=== PATIENT | female | born 1975 | race Caucasian/White ===

== ENCOUNTER → 2018-04-20 13:52 | Outpatient (CLI) | payer MEDICAID, SELFPAY ==
[2017-03-24 10:26] VITALS: BMI 26.2
--- NOTE | 2018-04-20 | EMB_PTH ---
PATIENT: CHRISTIANA BROWN LOC: [facility] U#:[id number] AGE/SX: 49/F ROOM: RE04/20/[address]: Dr. Cordelia Olivas MD : 1975 BED: DIS: SPEC #: [id number] RECD: 04/20/18 14:07 STATUS: NATALIE LIZZY #: [id number] DEBRA: 04/20/18 00:[address]: Cordelia Rincon DEPT: SURGICAL PATHOLOGY RECD BY: Jose Moon Tissues: Endometrium, NOS Procedures: Surgery Specimen Level IV HEADER OPERATION: Endometrial biopsy PRE-OP DIAGNOSIS: Frequent and irregular menses, pap 04/20/18, 04/11/18 TISSUE SUBMITTED: Endometrial biopsy MICROSCOPIC DIAGNOSIS Endometrial biopsy: Proliferative endometrium. SJ:rl 04/21/18 MICROSCOPIC DESCRIPTION Slides are reviewed. GROSS DESCRIPTION Received is one container labeled with the patient's name and not further designated. The specimen consists of multiple irregular fragments of pink-red soft tissue that in aggregate measure 3 x 2.5 x 0.3 cm. The specimen is totally submitted in one cassette. / OSCAR:rl 04/20/18 TC:4 CPT: 39148
[2018-04-20 14:19] LABS: Hematocrit 35.3 % (37-47); Hemoglobin 11.1 g/dl (12.0-15.0); Mean Corp Hgb Conc 31.4 g/gl (32-36); Mean Corpuscular Hgb 28.2 pg (27.0-32.0); Mean Corpuscular Volume 89.6 fL (81-99); Mean Platelet Vol. 9.9 fl (6.2-12.0); Platelet Count 259 K/mm3 (150-450); RBC Distribution Width CV 13.8 % (11.6-14.6); RBC Distribution Width SD 45.4 fl (35.1-43.9); Red Blood Count 3.94 M/mm3 (4.2-5.4)
[2018-04-20 14:20] LABS: Scan Indicated on CBC? Y/N NO
[2018-04-20 14:29] LABS: Free T3 2.6 pg/mL (2.18-3.98); Iron 39 ug/dL (50-170); T4 Free Direct 0.86 ng/dL (0.76-1.46); T4 Total, Thyroxin 7.2 ug/dL (4.8-13.9); Thyroid Stim Hormone (TSH) 1.24 uIU/mL (0.358-3.74)
[2018-04-26 11:45] LABS: HPV APTIMA, High Risk Negative (Negative)
== END ==
PROVIDERS: Referring Provider Obstetrics & Gynecology; Visit Provider Obstetrics & Gynecology
DX: N92.0 Excessive and frequent menstruation with regular cycle (principal)
CPT/HCPCS: 83540; 84436; 84439; 84443; 84481; 85027; 87624; 88175; 88305; G0145

== ENCOUNTER → 2018-07-24 09:12 | Outpatient (CLI) | payer MEDICAID, SELFPAY ==
[2018-06-30 10:31] LABS: Hematocrit 39.1 % (37-47); Hemoglobin 12.8 g/dl (12.0-15.0); Mean Corp Hgb Conc 32.7 g/gl (32-36); Mean Corpuscular Hgb 29.8 pg (27.0-32.0); Mean Corpuscular Volume 91.1 fL (81-99); Mean Platelet Vol. 8.9 fl (6.2-12.0); Platelet Count 217 K/mm3 (150-450); RBC Distribution Width CV 15.5 % (11.6-14.6); RBC Distribution Width SD 51.6 fl (35.1-43.9); Red Blood Count 4.29 M/mm3 (4.2-5.4)
[2018-06-30 10:36] LABS: Scan Indicated on CBC? Y/N NO
[2018-06-30 10:47] LABS: Prothrombin Time (Protime)PT. 13.2 SECONDS (11.7-14.9)
[2018-06-30 10:48] LABS: Partial Thromboplast Time 27.8 Seconds (24.1-36.2)
== END ==
PROVIDERS: Family Provider Nurse Practitioner Family; PCP Nurse Practitioner Family; Referring Provider Obstetrics & Gynecology; Visit Provider Obstetrics & Gynecology
DX: Z01.818 Encounter for other preprocedural examination (principal)
CPT/HCPCS: 36415; 85027; 85610; 85730; 86850; 86900

== ENCOUNTER → 2018-12-13 09:49 | Outpatient (CLI) | payer MEDICAID, SELFPAY ==
[2018-12-13 12:02] LABS: HIV - WCH Non-Reactive (Nonreactive); Hepatitis C Antibody Non-Reactive (Nonreactive)
[2018-12-15 02:41] LABS: Rapid Plasmin Reagin (RPR) NONREACTIVE (NONREACTIVE)
== END ==
PROVIDERS: Visit Provider Obstetrics & Gynecology
DX: Z11.3 Encounter for screening for infections with a predominantly sexual mode of transmission (principal)
CPT/HCPCS: 36415; 86592; 86703; 86803

== ENCOUNTER 2019-03-29 08:54 | Day surgery (SDC) | payer MEDICAID, SELFPAY ==
[2019-03-23 11:37] LABS: Hemoglobin 11.8 g/dL (12.0-15.0); Mean Corp Hgb Conc 31.9 g/dL (32-36); Mean Corpuscular Hgb 29.2 pg (27.0-32.0); Mean Corpuscular Volume 91.6 fL (81-99); Mean Platelet Vol. 10.1 fl (6.2-12.0); Platelet Count 240 K/mm3 (150-450); RBC Distribution Width CV 12.8 % (11.6-14.6); RBC Distribution Width SD 42.1 fl (35.1-43.9); Red Blood Count 4.04 M/mm3 (4.2-5.4)
[2019-03-23 11:43] LABS: International Normalized Ratio 1.1; Partial Thromboplast Time 27.4 Seconds (24.1-36.2); Prothrombin Time (Protime)PT. 13.8 SECONDS (11.7-14.9)
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
[2019-03-29] VITALS (8 sets, daily range): BP systolic 102–113; BP diastolic 7–75; PULSE 54–74; RESP 16–18; TEMP 36.6–37; O2SAT 93–100; BMI 24.1
[2019-03-29 09:29] LABS: Internal QC Validated? YES +Cl - CLEAR BKGD; Pregnancy, Urine Negative Negative
[2019-03-29] MEDS: Lactated Ringers 1,000 ML 100 ML IV (09:31)
--- NOTE | 2019-03-29 10:50 | FALS_PTH ---
PATIENT: CHRISTIANA BROWN LOC: [facility] – [place], [place] U#:[id number] AGE/SX: 44/F ROOM: RE03/29/[address]: Dr. Cordelia Olivas MD : 1975 BED: DIS: 03/29/2019 SPEC #: [id number] RECD: 03/29/19 14:59 STATUS: NATALIE REBismark #: [id number] DEBRA: 03/29/19 10:[address]: Cordelia Rincon DEPT: SURGICAL PATHOLOGY RECD BY: Blanco Vazquez ENTERED: 03/30/19 09:40 SP TYPE: FALL TUBES OTHR DR: Chelsea Sparks, COAGULATING OPERATOR-C Tissues: A - Fallopian tube B - Endometrial cavity Procedures: Surgery Specimen Level II Surgery Specimen Level IV HEADER OPERATION: Hysteroscopy, D & C Symphion, Tracy ablation PRE-OP DIAGNOSIS: Desired sterilization, excessive and frequent menstruation with regular cycle, leiomyoma of uterus and unspecified TISSUE SUBMITTED: A. Bilateral fallopian tubes, B. Endometrial curettings MICROSCOPIC DIAGNOSIS A. Bilateral fallopian tubes, salpingectomy: Bilateral fallopian tubes including fimbrial ends, no pathologic diagnosis. Paratubal cyst. B. Endometrial curettings: Secretory endometrium. OSCAR:rl 04/02/19 MICROSCOPIC DESCRIPTION Slides are reviewed. GROSS DESCRIPTION A - Received is one container labeled with the patient's name and designated bilateral fallopian tubes. The specimen consists of bilateral fallopian tubes including fimbrial ends measuring 5 cm in length and 0.5 cm in diameter and 3.5 cm in length and 0.5 cm in diameter. Two small paratubal cysts are noted in one of the fallopian tubes filled with clear fluid. Paratubal cyst measures 0.3 cm in greatest dimension. The fallopian tubes are not identified as right or left. Sections reveal unremarkable cut surfaces. Route Salesperson sections are submitted in two cassettes as follows: 1 - one fallopian tube, 2 - second fallopian with paratubal cyst. B - Received in fixative is one container labeled with the patient's name and designated endometrial curettings. The specimen consists of multiple fragments of hemorrhagic soft tissue that in aggregate measure 7.5 x 3 x 0.3 cm. The entire specimen is submitted in three cassettes. / OSCAR:rl 03/30/19 TC:4 CPT: 80373, 57269 x2
[2019-03-29] MEDS: Bupivacaine Mpf 0.5% 30 ML VIAL (12:12)
--- NOTE | 2019-03-29 15:30 | DCINST_ITS ---
- Discharge Diagnoses Current Active Problems: Abnormal uterine bleeding You will use the following diet at home:: No restrictions Your food should be the consistency of: Regular Discharge Activity: Return to Normal Activity, May Shower, - - No tub bath x 2 weeks May resume sexual activity in: - - 4 weeks Call your doctor if you observe: Fever of 101 or Higher, Inability to urinate, Inability to have a bowel movement, Using more than one pad per hour, Shortness of breath, Chest pain, Calf discomfort, Uncontrolled pain Remove Dressing in (days):: 1 - Remove steristrips on Tuesday Cleanse incision/area with: Soap & Water Allergies/Adverse Reactions: Allergies latex Allergy (Mild, Verified 03/29/19 09:16) hives Medications to take at Discharge sumatriptan succinate 50 mg tablet 50 mg PO ONCE PRN 03/24/17 topiramate 50 mg tablet 50 mg PO BID 03/24/17 Meclizine HCl 25 mg PO PRN PRN 06/27/18 Acyclovir 400 mg PO PRN PRN 03/22/19 Cyanocobalamin (Vitamin B-12) [Vitamin B-12] 1,000 mcg PO DAILY 03/22/19 Glucosam/MSM/Chondroit/Vit D3 [Sv Glucosamine Chondroitin Tab] 1 ea PO DAILY 03/22/19 Fouke-3 Fatty Acids/Fish Oil [Fish Oil 1,000 mg Capsule] 1 ea PO DAILY 03/22/19 Ibuprofen 600 mg PO TID PRN #30 tab 03/29/19 Oxycodone [Oxyir] 5 mg PO Q6H PRN PRN #12 tab 03/29/19 The following prescriptions were given: Ibuprofen 600 mg PO TID PRN #30 tab PRN Reason: Pain Or Fever Transmission Status: Pending to [facility] Oxycodone [Oxyir] 5 mg PO Q6H PRN PRN #12 tab PRN Reason: severe pain Prescription Printed Primary Care Physician: Chelsea Sparks NP-C [Primary Care Provider] - Test Results: Test results from this visit will be discussed in further detail at your follow- up appointment, if applicable. Please Follow Up With: Cordelia Grimm MD When: 4 weeks
[2019-03-29] MEDS: HYDROcodone Bitartrate/Apap 5/325 Tablet PO (15:44)
--- NOTE | 2019-03-29 18:00 | OP.PCM_ITS ---
Problem List (1) Abnormal uterine bleeding Status: Acute Report of Operation Date of Procedure: 03/29/19 Pre-Operative Diagnosis: Abnormal uterine bleeding. Uterine Fibroids. Sterilization Request Post-Operative Diagnosis: Abnormal Uterine Bleeding. Uterine Fibroids. STerilization request Surgery/Procedure Performed:: Laparoscopic bilateral salpingectomy. Hysteroscopy. Dilation and curettage. Tracy endometrial ablation Description of Surgical Findings:: Large fibroid uterus approximately 14 weeks size Omental adhesion to anterior abdominal wall at umbilicus Normal tubes and ovaries family support specialist: None Type of Anesthesia:: General Anesthesiologist: Michele Pereyra Specimen's removed: 1. bilateral tubes. 2. endometrial curettings Estimated Blood Loss (mL): 50ml Description of Procedure: Indication: 44 year multiparous female with hx heavy and prolonged menses in setting of uterine fibroids. Following counseling she opted to proceed with hysteroscopy, dilation and curettage with endometrial ablation and laparoscopic bilateral salpingectomy for sterilization. Procedural r/b/i/a were discussed at great length preoperative. Patient desired to proceed. Procedure: The patient was brought to the operating room and sign in performed. She was placed in the dorsal supine position and induced under general anesthesia. She was placed into dorsal lithotomy and her arms were tucked at her sides. An examination under anesthesia was performed. The perineum and abdomen were prepped and draped in sterile fashion. The patient placed into high lithotomy and rojas catheter placed. A weighted speculum was placed vaginally and the cervix grasped at the anterior cervical lip. A paracervical block was placed using 1% lidocaine. Ther uterus sounded to 10cm and a ZUMI uterine manipulator was placed and secured. The tenaculum and speculum was removed. The patient was placed into low lithotomy and attention turned to the abdomen. Half percent bupivocaine was injected at the umbilicus. An incision was made at the inferior umbilicus and a Veress needle placed however hang drop test was unsuccessful. Thus, the Veress needle was removed and a 5mm port was placed with laparoscopic entry into the abdominal cavity. The abdomen was insufflated to 15mmHg and patient placed into Trendelenburg positioning. It appeared there was an adhesion immediately adjacent to this port site. TAP block was performed in the right and left lower quadrants under laparoscopic guidance using Bupivacaine and an additional 5mm port was placed at each of these sites under laparoscopic guidance. Laparoscopy demonstrated there was indeed a periumbilical adhesion incorporating the omentum without bleeding present. The abdomen and pelvis were inspected. The left tubal fimbria was identified and the left mesosalpinx was serially clamped, coagulated and cut using the Enseal device to the level of the uterine cornua with salpingectomy performed. In similar fashion, right salpingectomy was also performed. The tubes were removed via the ports. Bleeding at the right was controlled with electrocoagulation. The abdomen was desufflated and attention turned to the perineum. The patient was placed into high lithotomy. A Bivalved speculum was placed vaginally and the ZUMI removed. Tenaculum was replaced at the anterior cervical lip. The cervix was dilated and hysteroscopy performed using the Symphion scope and followed by biopsy of endometrium using the Symphion resectoscope. There was no significant submucus fibroid component noted. Sharp curettage was performed. Hysteroscopy was completed. The cervical length was measured and the Tracy device was introduced into the uterus and the array expanded. Tracy endometrial ablation was performed. The array was decompressed and the device removed. The tenaculum was removed from the cervix and and the site hemostatic. The patient was placed into low lithotomy and attention was again turned to the abdomen and the abdomen insufflated. Laparoscopy was again performed with good hemostasis. The procedure was complete. The abdomen was desufflated and the ports removed. The skin was closed with 4-0 monocryl.. Steristrips and Opsite dressing were placed over the incisions. The rojas catheter was also removed. The patient was placed into the dorsal supine position, awakened, extubated and transferred to the recovery room without complication. Sponge, needle counts were correct x 2. The patient tolerated the procedure well. - Complications None - Admit VTE Documentation VTE Present on Admission: No VTE Mechan Device Prophylaxis: SCD's VTE Pharm Prophylaxis ordered?: No
== END 2019-03-29 17:03 | disposition home or self-care (01) ==
LOC: SDC 08:55 → AC 08:55
PROVIDERS: Anesthesiology; Family Provider Nurse Practitioner Family; PCP Nurse Practitioner Family; Referring Provider Obstetrics & Gynecology; Visit Provider Obstetrics & Gynecology
PROC: 0UB98ZZ Excision of Uterus, Via Natural or Artificial Opening Endoscopic (ICD-10-PCS; CPT 58558; principal; 2019-03-29 10:35)
PROC: (CPT 58661; 2019-03-29 10:35)
DX: N93.9 Abnormal uterine and vaginal bleeding, unspecified (principal); N92.0 Excessive and frequent menstruation with regular cycle; D25.9 Leiomyoma of uterus, unspecified; N83.8 Other noninflammatory disorders of ovary, fallopian tube and broad ligament; K66.0 Peritoneal adhesions (postprocedural) (postinfection); G43.909 Migraine, unspecified, not intractable, without status migrainosus; Z30.2 Encounter for sterilization; Z79.899 Other long term (current) drug therapy; Z87.891 Personal history of nicotine dependence
CPT/HCPCS: 00952; 58563; 58661; 36415; 81025; 85027; 85610; 85730; 86850; 86900; 86901; 88302; 88305; J7120; C1760; J2405

== ENCOUNTER 2022-03-24 16:52 | Observation (INO) | payer MEDICAID, SELFPAY ==
--- NOTE | 2022-03-23 17:18 | HP.PCM_ITS ---
History and Physical Date of Admission: 03/24/22 HISTORY OF PRESENT ILLNESS 47 year old female presents with complaints of bilateral macromastia as well as associated painful symptomatology of neck pain, thoracic back pain, bilateral shoulder pain from shoulder grooving from the weight of her breast on her bra straps, an inframammary intertrigo for which she uses powders, coconut oil and butt paste for relief.? She denies any trauma to her breasts. Denies any nipple discharge.?? Her last mammogram was done on 10/14/21 in [place].? ?It showed breast composition is heterogenously dense which could obscure small masses (51-75% glandular).? No significant suspicious findings and no significant change has occurred. ? She denies any family history of breast cancer.? She has a history of painful severe scoliosis that required multiple complex surgeries and placement of rods to help with the straightening process.? She will always have discomfort from the back surgeries, but the large size of her breasts have exacerbated her painful symptomatology.? She also has chronic migraine headaches requiring medication. She presents at this time for further evaluation and treatment. PAST MEDICAL HISTORY Anemia Arthritis Back pain blood transfusion Breast lump Cardiology follow-up encounter Fibroids Former smoker Hearing problem History of irregular heartbeat History of steroid therapy History of stress test Loss of hearing Macromastia Migraines Scoliosis Seizures Shoulder pain SVT (supraventricular tachycardia) Wears glasses PAST SURGICAL HISTORY delivery delivered History of back surgery History of endometrial ablation History of knee surgery History of myomectomy History of tubal ligation Hx of dilation and curettage S/P fusion of thoracic spine S/P lumbar fusion ALLERGIES latex MEDICATIONS sumatriptan succinate 50 mg tablet 50 mg PO ONCE PRN Migraine Symptoms 03/24/17 [History Confirmed 03/17/22] acyclovir 400 mg tablet 400 mg PO PRN PRN OUTBREAK 03/22/19 [History Confirmed 03/17/22] cyanocobalamin (vitamin B-12) 1,000 mcg capsule 1,000 mcg PO DAILY 03/22/19 [History Confirmed 03/17/22] glucosamine 750 mg-msm 125 mg-chondroitin 600 mg-D3 1,000 unit tablet 1 ea PO DAILY 03/22/19 [History Confirmed 03/17/22] ibuprofen 600 mg tablet 600 mg PO TID PRN Pain Or Fever #30 tabs 03/29/19 [Rx Confirmed 03/17/22] hydrocodone 7.5 mg-acetaminophen 325 mg tablet 1 tab PO BID PRN Pain 01/06/22 [ History Confirmed 03/17/22] triamcinolone acetonide 55 mcg nasal spray aerosol 2 spray intranasal PRN PRN ALLERGIES 01/06/22 [History Confirmed 03/17/22] cholecalciferol (vitamin D3) 25 mcg (1,000 unit) chewable tablet (Vitamin D3) 25 mcg PO DAILY 03/17/22 [History Confirmed 03/17/22] cyclobenzaprine 5 mg tablet 5 mg PO PRN PRN MUSCLE SPASMS 03/17/22 [History Confirmed 03/17/22] diazepam 5 mg tablet (Valium) 5 mg PO QHS PRN anxiety #3 tabs 03/18/22 [Rx Confirmed 03/18/22] FAMILY HISTORY Mother Hyperlipidemia Arthritis Hypertension Thyroid disorderFather Hypertension Kidney diseaseGrandfather Myocardial infarctionGrandmother Congestive heart failure Lung cancer SOCIAL HISTORY Smoking Status:? Former smoker how long ago did patient quit smoking:? 2010 alcohol intake:? never substance use type:? does not use REVIEW OF SYSTEMS General - Denies fever, weight loss.? Has fatigue. Eyes - Denies cataracts and glaucoma. ENT - Denies nasal congestion and sore throat. Endocrine - Denies excessive thirst and urination. Skin - Denies suspicious lesions and skin cancer.? Has inframammary intertrigo for which she uses powders, coconut oil, and butt paste for relief. Musculoskeletal - Denies weakness of muscles and joints, and arthritis.? Has joint pain and stiffness and neck pain and back pain.? Her neck and back pain involve cervical and thoracic area. Has had complex back surgeries with placement of rods for her scoliosis. Has bilateral shoulder pain from shoulder grooving from the weight of her breasts on her bra straps.? Neuro - History of migraine headaches. Cardiovascular - Denies chest pain, fatigue, and shortness of breath with exertion. Psych - Denies anxiety and depression. Respiratory - Denies chronic cough and shortness of breath.? Patient is a former smoker. Gastrointestinal - Denies nausea, vomiting, diarrhea, and constipation. Hematologic - Denies abnormal bruising and bleeding. Genitourinary - Denies hematuria and urinary frequency. ? PHYSICAL EXAMINATION General - Alert and oriented.? Her bra size is 36 DDD.? Her height is 67 inches.? Her weight is 145 lbs.? Her BMI is 22.7%.? Her BSA is 1.76m2. HEENT - PERRL. EOMI. Throat is clear. Neck - Supple.? No cervical adenopathy.? No bony tenderness.? There is some pericervical soft tissue tenderness. Lungs- Clear to auscultation. Heart - Regular rate and rhythm. Breasts - Patient has bilateral macromastia.? No breast masses palpable.? No axillary adenopathy noted. Distance from midclavicular line on the left to nipple is 34 cm and from the nipple to the inframammary fold is 11 cm. Distance from midclavicular line on the right to the nipple is 33 cm and from the nipple to the inframammary fold is 11 cm. Nipple areolar complex diameter is 8 cm bilaterally.? No active inframammary intertrigo noted at this time. Abdomen - Soft and non distended. Back - No bony tenderness noted.? There is perivertebral soft tissue tenderness in the upper thoracic area. Extremities - FROM.? No axillary adenopathy.? Radial pulses are palpable. There is some bilateral shoulder tenderness with shoulder grooving from the weight of her breasts on her bra straps. Neuro - CN II-XII grossly intact. Psych - Normal mood and affect. ASSESSMENT 1.? Bilateral macromastia. 2.? Neck pain. 3.? Thoracic back pain. 4.? Bilateral shoulder pain from shoulder grooving from the weight of the breasts on her bra straps. 5.? Inframammary intertrigo. 6.? Scoliosis. 7.? History of back surgery with placement of rods. PLAN Discussed with the patient the procedure of breast reduction mammoplasty.? I feel this procedure would be beneficial in this patient as it would help relieve her painful symptomatology.? Her last mammogram was done on 10/14/21 in [place]. ? It showed breast composition is heterogenously dense which could obscure small masses (51-75% glandular).? No significant suspicious findings and no significant change has occurred. Based on the Deejaynur Sliding Scale, I would remove approximately 412 g of breast tissue per side.? We will send the tissue to pathology for analysis to rule out carcinoma. This sliding scale helps to determine the minimum required amount of tissue that needs to be removed from each breast in order for it to be considered a medical need. Discussed with patient the extent of scarring for this procedure.? The biggest risk for wound healing problems is the T-zone area.? Usually wound care and sometimes antibiotics are necessary for healing in this area. She would have drains in for a few day depending on the amount of tissue that is removed.? She will be on antibiotics until the drains are removed. In general, the final breast size will be in the high B to maybe low C range.? Patient voices understanding.? She would prefer a regular B cup. Surgery will be done under general anesthesia with a surgical observation overnight stay in the hospital.? She will have drains in for a few days and be maintained on antibiotics until the drains are removed. She will be on a lifting restriction for 6 weeks and wear a surgical compression bra for 6 weeks. She has been on steroids in the past and will be given steroids perioperatively. We have received medical approval for the surgery.? It is scheduled for March 24, 2022. ? Any preop questions that she had were answered personally and to her satisfaction.? Patient was informed of the risks and complication of the procedure including alternatives to surgery.? These were discussed with her personally.? She voices understanding and wishes to proceed.? Some of the risks and complications were included in a form from the [place] [employer]. Will call in a few Valium prior to surgery to help with preop anxiety, to be taken at bedtime.
[2022-03-24] VITALS (16 sets, daily range): BP systolic 114–137; BP diastolic 60–93; PULSE 64–120; RESP 14–16; TEMP 36.3–37.7; O2SAT 93–100; BMI 22.2
[2022-03-24] MEDS: Lactated Ringers 1,000 ML 40 ML IV (06:30)
[2022-03-24] MEDS: Gabapentin 600 MG Tablet PO (06:57)
[2022-03-24] MEDS: Acetaminophen 500 MG Tablet 1000 MG PO ×2 (06:57→22:39)
[2022-03-24] MEDS: Scopolamine 1mg/72hr Patch 1 PATCH TD (06:57)
[2022-03-24 07:02] LABS: Magnesium 2.4 mg/dL (1.6-2.6)
[2022-03-24 07:10] LABS: Bedside Glucose 81 mg/dL (74-106)
[2022-03-24] MEDS: Lidocaine 2% /Epi 1:100 (20ml) 20 ML VIAL (08:00)
[2022-03-24] MEDS: Cefazolin 2 GM in 0.9% Normal Saline 100 ML IV (08:00)
--- NOTE | 2022-03-24 08:00 | BR_PTH ---
PATIENT: CHRISTIANA BROWN LOC: MS3 U#:[id number] AGE/SX: 47/F ROOM: [facility] [place] RE03/24/[address]: Dr. Damien Cordero MD : 1975 BED: 1 DIS: 03/25/2022 SPEC #: [id number] RECD: 03/24/22 14:22 STATUS: NATALIE REQ #: [id number] DEBRA: 03/24/22 08:[address]: Damien Cordero DEPT: SURGICAL PATHOLOGY RECD BY: Kanwal Vincent ENTERED: 03/25/22 09:57 SP TYPE: MAMOPLASTY OTHR DR: Chelsea Sparks, BLADIMIR-Andres Tissues: A - Right breast, NOS B - Left breast, NOS Procedures: Surgery Specimen Level IV HEADER OPERATION: ERAS, breast reduction mammoplasty PRE-OP DIAGNOSIS: Bilateral macromastia TISSUE SUBMITTED: A ? Tissue right breast, B ? Tissue left breast MICROSCOPIC DIAGNOSIS A. Tissue right breast, breast reduction mammoplasty: Benign breast tissue with focal fibrocystic changes, adenosis and mild intraductal hyperplasia without atypia (475 gm). Focal microcalcifications. B. Tissue left breast, breast reduction mammoplasty: Benign breast tissue with focal fibrocystic changes (536 gm). SJ:rl 03/26/2022 MICROSCOPIC DESCRIPTION Slides are reviewed. GROSS DESCRIPTION A - Received in fixative is one container labeled with the patient's name and designated right breast tissue. The specimen consists of 19 fragments of biggs-yellow fibrofatty tissue ranging in size from 3 to 12 cm. Unremarkable pieces of biggs skin are adherent to several fragments and do not show cutaneous lesions. The specimen is aggregate weighs 475 gm. Serial sections reveal yellow-white fibrous cut surfaces. No distinct mass lesion is identified. Manager Exchange sections are submitted in six cassettes. B - Received in fixative is one container labeled with the patient's name and designated left breast tissue. The specimen consists of 20 fragments of biggs-yellow fibrofatty tissue ranging in size from 3 to 12 cm. Unremarkable pieces of biggs skin are adherent to several fragments and do not show cutaneous lesions. The specimen is aggregate weighs 536 gm. Serial sections reveal yellow-white fibrous cut surfaces. No distinct mass lesion is identified. Manager Exchange sections are submitted in six cassettes. / AM:rl 03/25/2022 TC:5 CPT: 49180 x2
--- NOTE | 2022-03-24 14:38 | PCM.OPRPT ---
Problems Associated Problem List Diagnoses (1) Macromastia: (2) Chronic neck pain: (3) Chronic thoracic back pain: (4) Shoulder pain: (5) Intertrigo: (6) History of back surgery: (7) Scoliosis: Report of Operation Date of Procedure: 03/24/22 Pre-Operative Diagnosis: 1. Bilateral macromastia. 2. Neck pain. 3. Thoracic back pain. 4. Bilateral shoulder pain from shoulder grooving from the weight of the breasts on her bra straps. 5. Inframammary intertrigo. 6. Scoliosis. 7. History of back surgery with placement of rods. Post-Operative Diagnosis: Same. Surgery/Procedure Performed:: Bilateral breast reduction mammaplasty. Description of Surgical Findings:: 47 year old female presents with complaints of bilateral macromastia as well as associated painful symptomatology of neck pain, thoracic back pain, bilateral shoulder pain from shoulder grooving from the weight of her breast on her bra straps, an inframammary intertrigo for which she uses powders, coconut oil and butt paste for relief.? She denies any trauma to her breasts. Denies any nipple discharge.?? Her last mammogram was done on 10/14/21 in [place].? ?It showed breast composition is heterogenously dense which could obscure small masses (51-75% glandular).? No significant suspicious findings and no significant change has occurred. ? She denies any family history of breast cancer.? She has a history of painful severe scoliosis that required multiple complex surgeries and placement of rods to help with the straightening process.? She will always have discomfort from the back surgeries, but the large size of her breasts have exacerbated her painful symptomatology.? She also has chronic migraine headaches requiring medication. She presents at this time for further evaluation and treatment. Patient was informed of the risks and complications of the procedure including alternatives to surgery. These were discussed with the patient personally. Patient voices understanding and wishes to proceed. Some of the risks and complications were included in a form from the [place] [employer]. Potential risks and complications included but not inclusive of bleeding, infection seroma, hematoma, bruising, swelling, prolonged need for drains, loss of sensation to skin, partial or complete loss of skin flap and/or nipple graft, wound breakdown, need for wound care, poor scarring, poor aesthetic outcome, intra operative cardiac or neurologic events, DVT, PE, and reaction to anesthesia. IV Fluids - 3000 ml. Urine Output - 400 ml. Tissue removed from the left breast - 532 grams. Tissue removed from the right breast - 480 grams. I used AxioFill Placental Connective Tissue Powder, I used 2 500 mg vials, one in each breast). Catalog Number - [id number]. Lot Number - [id number]. Expiration - October 12, 2026, (Left breast). Catalog Number - [id number]. Lot Number - [id number]. Expiration - November 12, 2026, (Right breast). I used Robi absorbable hemostat, (I used 4 vials, 2 in each breast). Reference Number - [id number]. Lot Number - [id number]. Expiration - October 08, 2026, (Left breast). Reference Number - [id number]. Lot Number - [id number]. Expiration - November 08, 2026, (3 vials, one in left breast and 2 in right breast). Surgeon: Damien Cordero MD salesforce trainer: Eileen Orona RNFA salesforce trainer: Brandin Lira RNFA Type of Anesthesia: General Anesthesiologist: Manny Mason MD and Daquan Lepe CRNA Specimen's removed: 1. Left breast tissue to Pathology. 2. Right breast tissue to Pathology. Drains: Justin x2 (one in each breast). Estimated Blood Loss (mL): 150. Fluids Replaced: 3400 ml (IV Fluids 3000 ml, Urine Output 400 ml). Description of Procedure: In the preop area, the patient was placed in the sitting position and preoperative markings were made.? The sternum midline was marked down to the umbilicus.? The inframammary folds were marked bilaterally.? The midclavicular line was then marked down to the nipple, then from the nipple to the inframammary fold.? The inframammary fold was then superimposed on the midclavicular line and I made a point 1 cm below that to be the new position of the nipple-areolar complex.? 7 cm lines were then drawn divergent from that point to encompass the nipple-areolar complex.? The distance between the divergent lines was 9 cm.? The patient was then placed in the supine position and taken to the operating room and placed under general anesthesia and her breasts were prepped and draped in usual fashion.? Ioban draping was also used.? SCDs were placed for DVT prophylaxis.? Perioperative antibiotics were given intravenously.? A Mcleod catheter was also placed. ? I then adam straight lines down from the lines drawn divergent around the nipple-areolar complex down to the inframammary fold.? The width of the pedicle is 9 cm.? I then used a 42 mm circular template for a new size of the nipple-areolar complex.? The central markings were infiltrated with Xylocaine and epinephrine.? The central skin was then deepithelialized.? I started on the left side first and then went to the right side.? I then mobilized medial and lateral breast flaps at the level of Skyler's fascia down to about 1-2 cm from the chest wall.? This was met in the midline of the breast with dissection at the level of Skyler's fascia down to about 1-2 cm from the chest wall.? Once the central breast mound pedicle was from the skin envelope, the reduction was then begun.? Most of the tissue was removed from the superior aspect of the breast and the lateral aspect of the breast.? I then sutured the leading edge of the medial and lateral breast flaps to the midline of the inframammary fold with 2-0 Vicryl suture.? The vertical incision was approximated using surgical clips.? The excess tissue from the medial and lateral breast flaps were excised and the horizontal incision was approximated using surgical clips.? The patient was then placed in a sitting position.? Using a vertical limb length of 4.5 cm, I adam the new position of the new nipple-areolar complexes on both breasts.? They were in good position on the central aspect of the breast mound.? Good symmetry was noted between the left breast and the right breast.? Good shape and contour and projection were noted and appeared clinically to be a B cup.? The patient was then placed back in the supine position and the surgical clips were removed.? The breast wounds were then irrigated with Irrisept 0.05% Chlorhexidine solution which was followed by saline irrigation.? Hemostasis was obtained using electrocautery.? The tissue removed from the left breast was 532 grams.? The tissue removed from the right breast was 480 grams.? The tissue that was removed from the breasts was sent to Pathology for analysis to rule out carcinoma. ? After hemostasis was obtained using electrocautery, I then sprayed Robi absorbable hemostat into both breast wounds.? I used two vials for each side.? I then placed a size 15 Justin drain into each breast wound to be brought through the lateral aspect of the horizontal incision.? I then closed the breast wounds by first approximating the leading edge of the medial and lateral breast flaps to the midline of the inframammary fold with 2-0 Vicryl suture.? I then placed AxioFill placental connective tissue powder into both wounds at the level of the Tzone to help with the healing process. I used 500 mg in each breast. ? The deep dermis and subcutaneous tissue of the vertical incision and the horizontal incisions were approximated using 3-0 Monocryl interrupted sutures.? ? The horizontal incision was then approximated using 4-0 V-Loc unidirectional barbed running subcuticular suture.? I also placed a few 4-0 Prolene vertical mattress interrupted sutures at the level of the Tzone.? The vertical incision was then closed on the skin with 4-0 Prolene interrupted sutures.? With a vertical limb length of 4.5 cm, I adam a circular incision where the nipple-areolar complex would be brought through this keyhole incision.? Incisions were made and the nipple areolar complex was brought through the keyhole incision.? The nipple-areolar complex was secured to the breast skin using 3-0 Monocryl interrupted sutures for deep dermis and subcutaneous tissue.? The skin was approximated using 4-0 Prolene simple interrupted sutures.? This was then covered with Histoacryl skin tissue adhesive.? I sutured the drains to the skin using 3-0 nylon suture.? At the end of the procedure, the breasts were soft with no evidence of vascular compromise.? No evidence of hematomas were noted.? The nipples were viable.? I then dressed the breasts with a Kerlix gauze and a compression ant wrap.? Then patient tolerated the procedure well and will be sent to the recovery room in satisfactory condition.? She will be admitted for surgical observation overnight stay.? She will go home tomorrow once she is tolerating oral pain medication.? I will remove the drains in a few days.? She will keep her head elevated during the initial postoperative period.? She will be maintained on a lifting restriction and keep her head elevated during the initial postoperative period. Post-discharge, she may get a compression sports bra as well.? She will have the Mcleod removed in the morning.? She will be sent home on antibiotics and pain medicine. ? Sutures will be removed in 1-2 weeks. Grafts/Implants Used: AxioFill Placental Connective Tissue Powder x2, Robi x4. Procedure Start Time: 08:54 Procedure Stop Time: 14:58 Complications None. Admit VTE Documentation VTE Present on Admission: No VTE Mechan Device Prophylaxis: SCD's VTE Pharm Prophylaxis ordered?: Yes Addendum Addendum: Surgery Charges CPT - 20296-29 ICD-10 - N62, M54.2, M54.6, M25.519, L30.4, M41.9, Z98.890 33398 N62, M54.2, M54.6, M25.519, L30.4, M41.9, Z98.890
[2022-03-24] MEDS: Lactated Ringers 1,000 ML 60 ML IV ×3 (15:27→22:41)
[2022-03-24] MEDS: Gabapentin 100 MG Capsule 200 MG PO (22:38)
[2022-03-24] MEDS: oxyCODONE 5 MG Tablet PO (22:39)
[2022-03-24] MEDS: Docusate Sodium 100 MG Capsule PO (22:41)
[2022-03-24] MEDS: Cefazolin 1 GM/50 ML BAG IV (22:41)
[2022-03-25 02:25] VITALS: BP 119/77; PULSE 82; RESP 16; TEMP 37.3; O2SAT 98
[2022-03-25] MEDS: Acetaminophen 500 MG Tablet 1000 MG PO ×3 (05:52→17:03)
[2022-03-25] MEDS: oxyCODONE 5 MG Tablet PO ×3 (05:52→14:38)
[2022-03-25] MEDS: Cefazolin 1 GM/50 ML BAG IV ×2 (05:52→14:17)
[2022-03-25 06:18] LABS: Hematocrit 34.3 % (37-47); Hemoglobin 11.8 g/dL (12.0-15.0); Mean Corp Hgb Conc 34.4 g/dL (32-36); Mean Corpuscular Hgb 33.3 pg (27.0-32.0); Mean Corpuscular Volume 96.9 fL (81-99); Mean Platelet Vol. 10.2 fl (6.2-12.0); Platelet Count 150 K/mm3 (150-450); RBC Distribution Width CV 12.3 % (11.6-14.6); RBC Distribution Width SD 43.8 fl (35.1-43.9); Red Blood Count 3.54 M/mm3 (4.2-5.4); White Blood Count 11.2 K/mm3 (4.4-11.0)
[2022-03-25 07:00] VITALS: O2SAT 97
[2022-03-25 07:09] LABS: Anion Gap 6 (5-15); BUN 7 mg/dL (7-18); Calcium,Total 7.7 mg/dL (8.5-10.1); Chloride 108 mmol/L (98-107); Creatinine, Serum 0.58 mg/dL (0.55-1.02); EST Glomerular Filtration Rate 117 mL/min (>60); Est Glom Filt Rate - Afr Amer 141 mL/min (>60); Estimated Creatinine Clearance 115.35 ml/min; Glucose 97 mg/dL (74-106); Potassium 3.7 mmol/L (3.5-5.1); Prealbumin 15.2 mg/dL (20.0-40.0); Sodium Level 139 mmol/L (136-145)
[2022-03-25 08:07] VITALS: BP 102/62; PULSE 83; RESP 18; TEMP 36.9; O2SAT 100
[2022-03-25] MEDS: Ensure Surgery 237 ML LIQUID PO ×2 (08:16→11:51)
[2022-03-25] MEDS: Cyanocobalamin 500 MCG Tablet 1000 MCG PO (08:17)
[2022-03-25] MEDS: Docusate Sodium 100 MG Capsule PO (08:17)
[2022-03-25] MEDS: Enoxaparin 40 MG/0.4 ML Syringe SC (08:17)
[2022-03-25] MEDS: Gabapentin 100 MG Capsule 200 MG PO ×3 (08:17→17:03)
[2022-03-25 14:51] VITALS: BP 97/79; PULSE 92; RESP 18; TEMP 36.9; O2SAT 97
--- NOTE | 2022-03-25 15:40 | PN.SURG_ITS ---
Subjective Subjective Postop #1 Patient has some incisional pain. Objective Data Objective Data Vital Signs: Vital Signs Temp Pulse Resp BP Pulse Ox O2 Del Method O2 Flow Rate 98.4 F 92 18 97/79 97 Room Air 4 03/25/22 14:51 03/25/22 14:51 03/25/22 14:51 03/25/22 14:51 03/25/22 14:51 03/25/22 14:51 03/24/22 16:45 Oxygen Flow Rate (L/min) 4 Oxygen Delivery Method Room Air Weight: 141 lb 15.996 oz Body Mass Index (BMI) 22.2 Intake & Output: Intake and Output for Last 24 Hours 03/23/22 03/24/22 03/25/22 23:59 23:59 23:59 Intake Total 3722 / 3722 626 / 626 Output Total 770 / 820 1650 / 1650 Balance 2952 / 2902 -1024 / -1024 Drainage 270 ml yesterday, 175 ml today. Lab / Micro Data Attestation: I reviewed the patient's lab results. Result Diagrams: 03/25/22 04:23 03/25/22 04:23 Labs: Laboratory Results - last 24 hr 03/25/22 04:23: WBC 11.2 H, RBC 3.54 L, Hgb 11.8 L, Hct 34.3 L, MCV 96.9, MCH 33.3 H, MCHC 34.4, RDW Std Deviation 43.8, RDW Coeff of Leena 12.3, Plt Count 150, MPV 10.2 03/25/22 04:23: Sodium 139, Potassium 3.7, Chloride 108 H, Carbon Dioxide 25.0, Anion Gap 6, BUN 7, Creatinine 0.58, Estim Creat Clear Calc 115.35, Est GFR (MDRD) Af Amer 141, Est GFR (MDRD) Non-Af 117, BUN/Creatinine Ratio 12.0, Glucose 97, Calcium 7.7 L, Prealbumin 15.2 L Physical Exam Narrative PHYSICAL EXAMINATION General - Alert and Oriented HEENT - PERRL. EOMI. Neck - Supple and nontender. Breasts - soft and symmetrical. Incisions are dry and intact. Good breast contour noted. No clinical evidence of hematoma. Nipples are viable. Abdomen - Soft and nondistended. Extremities - she is steady on her feet with ambulation. Neuro - CN II-XII grossly intact. Psych - Normal mood and affect. Assessment & Plan Assessment/Plan (1) Macromastia: (2) Chronic neck pain: (3) Chronic thoracic back pain: (4) Shoulder pain: (5) Intertrigo: (6) History of back surgery: (7) Scoliosis: PLAN: Plan Breasts are soft and symmetrical. Good breast contour noted. Nipples are viable. Incisions are dry and intact. No clinical evidence of hematoma. Hgb was 11.8. Drainage has been over 100 ml. Will leave the drains in and remove in the office. She is tolerating po analgesia. She is steady on her feet with ambulation. Mcleod catheter was removed. She is voiding without difficulty. Encourage nutritional supplementation with protein to help the healing process. Prealbumin was 15.2. Discharge home today. Keep head elevated. Continue 20 lb lifting restriction. Continue surgical bra for compression. May add an ant wrap as well for compression. Once the drains are removed, can start to use the compression garments with an chemical inspector if needed. Wrote scripts for Cefadroxil, Acidophilus Probiotic, Percocet 7.5 mg, and Colace. She was instructed to use Percocet or the Vicodin that she uses for her chronic back pain, not both at the same time. She voiced understanding. Followup office Tuesday03/30/22 at 930 am.
--- NOTE | 2022-03-25 15:46 | DCINST_ITS ---
Discharge Instructions Diet Discharge Diet: No restrictions and - (encourage nutritional supplementation with protein to help the healing process.) Activity Discharge Activity: May Not Drive, May Not Shower (until drains are removed.) and - (keep head elevated. no heavy lifting.) Return to work on:: 04/07/22 (tentative) May shower in (days): 4 (after drains are removed.) May resume sexual activity in: 10-14 days Weight Bearing Status: Weight bearing as tolerated Lifting Restrictions: 20 lbs. Keep extremity elevated above heart level: - (elevate head.) Dressing / Incision Call your doctor if your incision/area has: Continuous Slow Oozing, Sudden Increased Bleeding, Increased Pain/ Swelling, Increased Redness, Foul Smelling Discharge and Swelling at the incision site Call your doctor if you observe: Fever of 101 or Higher, Coldness, Increased Pain, Shortness of breath, Chest pain, Calf discomfort and Uncontrolled pain Change Dressing in: 2 days (dry dressings as needed if there is drainage on the gauze.) Cleanse incision/area with: Keep Dressing Clean & Dry (may get incisions wet in the shower after the drains are removed.) Drain: Suction (arlene drain x2 to bulb suction. empty and record output daily.) Follow Up Care Please Follow Up With: Damien Cordero MD When: tuesday03/30/22 at 900 am. Test Results: Test results from this visit will be discussed in further detail at your follow- up appointment, if applicable. Discharge Plan Admission Admit Date/Time: 03/24/22 16:52 Primary Reason for Your Visit: bilateral breast reduction mammaplasty Attending Provider: Damien Cordero Primary Care Provider: Chelsea Sparks NP Discharge Orders/Prescriptions Prescriptions: New cefadroxil 500 mg capsule 500 mg PO BID Qty: 14 0RF L.acidoph,saliva-B.bif-S.therm [Acidophilus Probiotic Blend] 175 mg capsule 1 cap PO DAILY Qty: 20 0RF oxycodone-acetaminophen [Percocet] 7.5-325 mg tablet 1 tab PO Q6H PRN (Reason: pain (scale score 7-10)) 7 Days Qty: 28 0RF Rx Instructions: 28 tabs (twenty-eight) docusate sodium [Colace] 100 mg capsule 100 mg PO BID Qty: 60 0RF Continued sumatriptan succinate 50 mg tablet 50 mg PO ONCE PRN (Reason: Migraine Symptoms) hydrocodone-acetaminophen 7.5-325 mg tablet 1 tab PO BID PRN (Reason: Pain) Rx Instructions: CHRONIC BACK PAIN triamcinolone acetonide 55 mcg aerosol,spray 2 spray intranasal PRN PRN (Reason: ALLERGIES) Rx Instructions: administer into each nostril diazepam [Valium] 5 mg tablet 5 mg PO QHS PRN (Reason: anxiety) Qty: 3 0RF Rx Instructions: 3 tabs (three) sprldbpv-kzm-jzdangslz-vit D3 1 EACH tablet 1 ea PO DAILY cyanocobalamin (vitamin B-12) 1,000 MCG capsule 1,000 mcg PO DAILY acyclovir 400 MG tablet 400 mg PO PRN PRN (Reason: OUTBREAK) ibuprofen 600 MG tablet 600 mg PO TID PRN (Reason: Pain Or Fever) Qty: 30 0RF cyclobenzaprine 5 mg tablet 5 mg PO PRN PRN (Reason: MUSCLE SPASMS) Label Comments: TAKE ONE TABLET BY MOUTH AT BEDTIME NEEDED FOR MUSCLE SPASMS cholecalciferol (vitamin D3) [Vitamin D3] 25 mcg (1,000 unit) Tablet,Chewable 25 mcg PO DAILY Referrals / Follow Up: Damien Cordero MD [Med Staff - Active Staff] - (followup tuesday03/30/22 at 900 am.) Chelsea Sparks NP, [employer] [Primary Care Provider] - Disposition Disposition (needs filled in before D/C Order can be placed): Home, Self Care
== END 2022-03-25 18:12 | disposition home or self-care (01) ==
LOC: SDC 17:03 → MS3 17:03
PROVIDERS: Anesthesiology; Admitting Provider Surgery; PCP Nurse Practitioner Family; Referring Provider Surgery; Visit Provider Surgery
PROC: 0H0U0ZZ Alteration of Left Breast, Open Approach (ICD-10-PCS; CPT 19318; principal; 2022-03-24 07:45)
DX: N62 Hypertrophy of breast (principal); M41.9 Scoliosis, unspecified; M25.512 Pain in left shoulder; G43.709 Chronic migraine without aura, not intractable, without status migrainosus; M25.511 Pain in right shoulder; M54.2 Cervicalgia; Z87.891 Personal history of nicotine dependence; M54.6 Pain in thoracic spine; L30.4 Erythema intertrigo; Z79.899 Other long term (current) drug therapy; G89.29 Other chronic pain
CPT/HCPCS: 19318; 00402; Q9968; 36415; 80048; 82962; 83735; 84134; 85027; 88305; 96365; 96366; 96372; 99221; J7120; G0378; J2405